=== PATIENT | male | born 1985 | race Two or more races ===

== ENCOUNTER 2022-12-05 12:48 | Emergency (ER) | payer OTHER ==
[~2022-12-05] VITALS: Ht 188 cm; Wt 80.0 kg
[2022-12-05] MEDS ORDERED: traMADol HCL 50 MG TAB PO ONE (16:00)
[2022-12-05 17:04] VITALS: BP 120/75
== END 2022-12-05 16:55 ==
LOC: ER 12:48 → EEVIPCON 12:48 → ER 16:55
DX: S05.12XA Contusion of eyeball and orbital tissues, left eye, initial encounter (principal); Z87.891 Personal history of nicotine dependence; Y04.2XXA Assault by strike against or bumped into by another person, initial encounter; Y93.89 Activity, other specified; Y92.89 Other specified places as the place of occurrence of the external cause; Y99.8 Other external cause status
CPT/HCPCS: 70450; 70480; 71250